=== PATIENT | female | born 1965 | race Hispanic/Latino ===

== ENCOUNTER 2018-01-15 18:29 | Emergency (ER) | payer SELFPAY ==
--- NOTE | 2018-01-15 18:38 | Emergency Department Report ---
HPI - General Time Seen by Provider: 01/15/18 18:33 - HPI HPI: Room 2 The patient is a 52-year-old female presenting with a chief complaint of cardiac arrest. Per EMS the patient had walked outside and came back in and collapsed. EMS arrived on scene at 17:54 to find the patient in asystole. Patient was intubated and ACLS protocols initiated. EMS states patient's rhythm went from asystole to PEA but she never regained a pulse. ACLS protocols were continued in the ED but there was no return of spontaneous circulation. Location: Cardiovascular system Duration: [See above] Quality: Cardiac arrest Severity: Severe Modifying factors: [see above] Context: [see above] Mode of transportation: [not driving] ED Past Medical Hx - Past Medical History Additional medical history: Unknown - Surgical History Additional Surgical History: Unknown - Family History Family history: no significant - Social History Smoking Status: Unknown if ever smoked ED Review of Systems ROS: Stated complaint: CARDIAC ARREST Other details as noted in HPI Comment: Unobtainable due to pts medical conditions Physical Exam - Physical Exam Physical Exam: GENERAL: The patient is well-developed well-nourished female lying on stretcher receiving chest compressions and being bagged via EMS. [] HEENT: Normocephalic. Pupils 5 mm and nonreactive bilaterally NECK: Trachea midline CHEST/LUNGS: No spontaneous breath sounds. Decreased breath sounds on the left upon arrival to the ED. ET tube was pulled back to 21 cm at the lips and breath sounds were then equal bilaterally HEART/CARDIOVASCULAR: No heart sounds. Asystole on monitor ABDOMEN: Abdomen is soft SKIN: There is no diaphoresis. NEURO: GCS 3T MUSCULOSKELETAL: There is no evidence of acute injury. ED Medical Decision Making - Differential Diagnosis cardiac arrest Critical care attestation.: If time is entered above; I have spent that time in minutes in the direct care of this critically ill patient, excluding procedure time. ED Disposition Clinical Impression: Cardiac arrest Disposition: DC-20 Is pt being admited?: No Does the pt Need Aspirin: No Condition: Poor Time of Disposition: 18:34 (patient )
== END 2018-01-15 20:25 ==
LOC: ED 18:29
DX: I46.9 Cardiac arrest, cause unspecified (principal)
CPT/HCPCS: 92950